=== PATIENT | female | born 1970 | race Caucasian/White ===

== ENCOUNTER 2024-01-23 05:12 | Day surgery (SDC) | payer OTHER ==
[2024-01-22 07:12] VITALS: BMI 37.4
[2024-01-23 10:59] VITALS: TEMP 97.6
[2024-01-23 11:39] VITALS: RESP 18
[2024-01-23 11:41] VITALS: BP 131/86; PULSE 72
== END 2024-01-23 11:30 | disposition home or self-care (01) ==
LOC: JASU-ENDO 05:12
PROVIDERS: ATTEND Internal Medicine Gastroenterology
PROC: 0DJD8ZZ Inspection of Lower Intestinal Tract, Via Natural or Artificial Opening Endoscopic (ICD-10-PCS; principal; 2024-01-23 10:00)
DX: Z12.11 Encounter for screening for malignant neoplasm of colon (principal); K64.8 Other hemorrhoids